=== PATIENT | male | born 1970 | race Caucasian/White ===

== ENCOUNTER 2018-01-28 09:46 | Day surgery (SDC) | payer OTHER ==
[~2018-01-28 09:46] MED LIST: Ak-Dilate OPHTHALMIC*** 0.71 ML, Cyclogyl 1% OPHTH SOL 5 ML 0.71 ML, GATIFLOXACIN 0.5% ... OP ONE; Lactated Ringers 1,000 ML IV ONE; Lactated Ringers 1,000 ML IV SCH; TETRACAINE 0.5% STERI-UNIT SOL OP ONE
[2018-01-28] MEDS ORDERED: DIPRIVAN 200 MG/20 ML IV ONE (09:47)
[2018-01-28] MEDS ORDERED: Epinephrine Preservative Free 1 MG/ML INTRAOP ONE (12:00)
[2018-01-28] MEDS ORDERED: BETADINE 5% OPHTHALMIC 30 ML OP ONE (12:00)
[2018-01-28] MEDS ORDERED: BSS 500 ML, Fortaz/Tazicef 1 GM** 0.2 G IO ONE ×2 (12:00)
[2018-01-28] MEDS ORDERED: LIDOCAINE HCL 1% AMPUL 5 ML IJ ONE (12:00)
[2018-01-28] MEDS ORDERED: ACETAZOLAMIDE 250 MG TABLET PO ONE (13:30)
[2018-01-28] MEDS ORDERED: Zofran 4 MG/2 ML VIAL IV PRN (13:30)
[2018-01-28 13:31] VITALS: O2SAT 98
[2018-01-28 13:51] VITALS: BP 122/79; PULSE 55
--- NOTE | 2018-01-29 08:37 | OP ---
DATE/TIME OF OPERATION: 01/28/2018 1207 TIME DICTATED: 1246 PREOPERATIVE DIAGNOSIS: Senile cataract of right eye. POSTOPERATIVE DIAGNOSIS: Senile cataract of right eye. SURGEON: Fracisco Cui MD PROFESSOR OF ART: NONE OPERATION: Cataract extraction of right eye with an intraocular lens implant STANDARD COMPLEX ___X___ ANESTHESIA: ___X___ Monitored anesthesia care in combination with topical and intra-cameral anesthesia (because of the established specific risk of reflux, arrhythmias, or an anxiety attack associated with ocular manipulation as well as difficulty of the air pollution inspector to manage such potentially catastrophic events while simultaneously attempting to complete the surgical procedure, it was deemed necessary for the patient's safety to have an anesthesiologist or a nurse residential life director present during the procedure whenever possible. The anesthesiologist or the nurse residential life director was utilized to monitor and regulate the intravenous sedation of the patient, so the patient was cooperative, relaxed, and comfortable). Topical anesthesia using Tetracaine eye drops together with intra cameral anesthesia using Lidocaine 1% MPF. The nurse was utilized to monitor the patient. ANESTHESIA PROVIDER: Milton Wasserman CRNA. COMPLICATIONS: None. BLOOD LOSS: None INDICATIONS: The patient is undergoing cataract surgery in the hopes of eliminating the visual complaints and difficulty. PROCEDURE: After arriving at the facility's outpatient surgery area, an IV was started; the patient was given 5 mg of p.o. Versed. (If an anesthesia provider was not monitoring the patient) The patient was then given topical anesthetic Tetracaine eye drops. A cotton pellet was soaked into a solution of a combination of Zymaxid 0.5%, Mike-Synephrine 2.5% and Ocufen (other drops might have been substituted referenced in the patient's record). The pellet was inserted by the RN into the lower conjunctival cul-de-sac with a sterile forceps and left for 20 minutes. The pellet was then removed by the RN with a sterile forceps before taking the patient to the operating room. The preoperative area nurse identified the patient and marked the correct eye to be operated on. I identified the correct eye to be operated on and marked it appropriately in the outpatient surgery area. The patient was then taken into the operating room. Tetracaine eye drops were installed again in the correct eye. The eyelids and the lashes and the lid margins were scrubbed with Betadine solution. One drop of the diluted Betadine solution was placed in the conjunctival cul-de-sac for 45 seconds and then was irrigated. A drop of Tetracaine Gel was placed in the conjunctival cul-de-sac. The patient's forehead was taped to secure it during the procedure. The patient was monitored. The patient was then draped in the usual way for this procedure. An eye speculum was used to separate the eyelids. The eye was then fixated and a temporal 2.5 mm incision was made in the clear cornea temporally at the limbus. Through the incision, 0.25 cc of 1% non-preserved lidocaine was injected into the anterior chamber for intracameral anesthesia. The anterior chamber was then filled with viscoelastic. The pupil was small. I felt that it would be safer to mechanically dilate the pupil. A Malyugin ring was used at this point which dilated the pupil. That was removed at the end of the procedure prior to aspiration of the viscoelastic from the anterior chamber and posterior to the intraocular lens implant. __X___ The cataract had a great amount of cortical changes. That rendered seeing the anterior capsule difficult for a safe performance of an anterior capsulotomy. I injected an air bubble into the anterior chamber. I then injected 1 ML of vision blue solution into the anterior chamber. The vision blue solution was irrigated from the anterior chamber after 30 seconds. The anterior capsule was stained which facilitated performing the anterior capsulotomy safely. After that was completed, a cystotome was introduced into the anterior chamber and a round anterior capsulotomy was performed. The capsule was removed by a forceps. Hydrodissection was next carried utilizing a 25-gauge cannula and balanced salt solution to delineate the cortical material from the capsule and the nucleus from the cortical material. The nucleus was rotated freely into the capsular bag with no difficulty. The phaco tip of the [employer] Phaco[employer]ulsifier was introduced into the anterior chamber and two grooves were made into the nucleus 90 degrees apart. Using two spatulas resulted into the nucleus being fractured into four quadrants. The phaco tip was then used to remove each quadrant of the nucleus. Viscoelastic was used during this process to protect the corneal endothelium. Once the entire nucleus was removed, the phaco tip then was removed and the irrigation tip was introduced into the eye and the cortex was removed. The posterior capsule was polished. It was noticed that there was a tear into the posterior capsule with few vitreous strands into the pupil plan. An anterior vitrectomy was performed. A 22.50 diopter, [id number], posterior chamber lens implant, was inspected and found to be grossly normal. The implant was inserted into the implant injector cartridge; Viscoelastic again was introduced into the anterior chamber, which filled the capsular bag. The implant injector's cartridge tip was placed at the limbal wound and the posterior chamber implant was released into the capsular bag and rotated appropriately. The implant was found to be into the capsular bag and it was centered. __X___ 0.2 ml of Tri-Moxi was introduced via 27 gauge cannula into the vitreous cavity through the ciliary processes. Viscoelastic was aspirated from the anterior chamber and posterior to the intraocular lens implant from the capsular bag using the irrigating tip. The anterior chamber was irrigated and filled with 5 cc antibiotic solution (500 cc of BSS plus 2 ml of Fortaz 100 mg/ml) ( if patient was not allergic to the medication). The lips of the corneal incision were hydrated using BSS solution. The anterior chamber was checked and found to be water tight. One drop each of antibiotic, steroid and NSAID drops (refer to chart for drops used) were placed in the conjunctival cul-de-sac of the operated eye. Patient tolerated the procedure quite well and left the operating room in satisfactory condition. DISCHARGE SUMMARY: The patient was released in stable condition. The patient and those with the patient were given an instruction sheet as of how to care for the eye after surgery as well as counseling on any abnormal laboratory studies by the postoperative RN. The patient was also given an appointment card for follow-up in the office and is to call immediately for any difficulties including but not limited to pain in the eye, decreased vision, discharge from the eye, headache and or fever. DISCHARGE DIAGNOSIS: Pseudophakia of right eye
== END 2018-01-28 14:25 | disposition home or self-care (01) ==
LOC: SDC 09:46
PROVIDERS: ATTEND Ophthalmology
DX: H25.9 Unspecified age-related cataract (principal); F32.9 Major depressive disorder, single episode, unspecified; J45.909 Unspecified asthma, uncomplicated; Z79.899 Other long term (current) drug therapy
CPT/HCPCS: 66982; C1780; J0171; J2704; A9270-GY

== ENCOUNTER 2018-02-12 10:16 | Emergency (ER) | payer OTHER ==
--- NOTE | 2018-02-12 10:34 | ERPHSYRPT ---
- History of Present Illness Time Seen by Provider: 02/12/18 10:27 Source: patient Exam Limitations: no limitations Patient Subjective Stated Complaint: states nonprod cough for one week. has tried otc meds without relief. states right side of chest hurts with coughing. Triage Nursing Assessment: occasional dry cough noted. skin pale, w/d. no resp distress noted. Physician History: The patient is a 47-year-old male complaining of a nonproductive cough, fever, and chills for the past week. He denies shortness of breath. His past medical history is significant for asthma and kidney stones. He is a smoker. Timing/Duration: week(s) (1), gradual onset, worse Cough Quality/Degree: moderate, dry cough Possible Cause: occasional episodes, smoke exposure Modifying Factors: Improves With: albuterol inhaler Associated Symptoms: fever, chills, chest pain/soreness, cough Allergies/Adverse Reactions: No Known Drug Allergies Allergy (Verified 02/12/18 10:23) Home Medications: Fluticasone/Salmeterol [Advair 250-50 Diskus] 1 each IH BID 11/16/15 [History] Tramadol HCl 50 mg [Ultram 50 mg] 50 mg PO TID 11/16/15 [History] Albuterol/Ipratropium 3ml Neb* [DUONEB 0.5-3 MG/3 ml Neb] 3 ml IH DAILY [History] Gabapentin [Neurontin] 100 mg PO TID 01/28/18 [History] Hx Tetanus, Diphtheria Vaccination/Date Given: No Hx Influenza Vaccination/Date Given: Yes Hx Pneumococcal Vaccination/Date Given: Yes - Review of Systems Constitutional: Fever, Chills Eyes: No Symptoms Ears, Nose, & Throat: No Symptoms Respiratory: Cough Cardiac: Chest Pain (right side with cough) Abdominal/Gastrointestinal: No Abdominal Pain, No Nausea, No Vomiting, No Diarrhea Genitourinary Symptoms: No Dysuria Musculoskeletal: No Back Pain, No Neck Pain Skin: No Rash Neurological: No Dizziness, No Focal Weakness, No Sensory Changes Psychological: No Symptoms Endocrine: No Symptoms Hematologic/Lymphatic: No Symptoms Immunological/Allergic: No Symptoms All Other Systems: Reviewed and Negative - Past Medical History Pertinent Past Medical History: Yes Neurological History: Seizures ENT History: Cataracts Cardiac History: No Pertinent History Respiratory History: Asthma, COPD Endocrine Medical History: No Pertinent History Musculoskeletal History: Other GI Medical History: No Pertinent History History: No Pertinent History Psycho-Social History: Anxiety, Depression Male Reproductive Disorders: No Pertinent History Other Medical History: sciatica pain lt leg - Past Surgical History Past Surgical History: Yes Neuro Surgical History: No Pertinent History Cardiac: No Pertinent History Respiratory: No Pertinent History Gastrointestinal: No Pertinent History Genitourinary: No Pertinent History Musculoskeletal: Joint Replacement, Orthopedic Surgery Male Surgical History: No Pertinent History Other Surgical History: states "both hips replaced" - Social History Smoking Status: Current every day smoker How long have you smoked: over 20 ye Exposure to second hand smoke: Yes Drug Use: none Patient Lives Alone: Yes - Nursing Vital Signs Nursing Vital Signs: Initial Vital Signs Temperature 97.3 F 02/12/18 10:18 Pulse Rate 74 02/12/18 10:18 Respiratory Rate 20 02/12/18 10:18 Blood Pressure 111/82 02/12/18 10:18 O2 Sat by Pulse Oximetry 98 02/12/18 10:18 Pain Scale Pain Intensity 7 - Physical Exam General Appearance: no apparent distress, alert Eye Exam: PERRL/EOMI, eyes nml inspection Ears, Nose, Throat Exam: normal ENT inspection, TMs normal, pharynx normal, moist mucous membranes Neck Exam: normal inspection, non-tender, supple, full range of motion Respiratory Exam: rhonchi, No respiratory distress, No diminished breath sounds , No prolonged expirations Cardiovascular Exam: regular rate/rhythm, normal heart sounds Gastrointestinal/Abdomen Exam: soft, No tenderness Rectal Exam: not done Back Exam: normal inspection, No CVA tenderness, No vertebral tenderness Extremity Exam: normal inspection, normal range of motion Neurologic Exam: alert, oriented x 3, cooperative, normal mood/affect, sensation nml, No motor deficits Skin Exam: normal color, warm, dry, No rash Lymphatic Exam: No adenopathy SpO2 Interpretation: normal SpO2: 98 Oxygen Delivery: Room Air - Radiology Exams Chest X-ray Interpretation: Interpreted by me, Negative (comp 2v cxr 01/16/16.) Ordered Tests: Active Orders 24 hr Category Date Time Status CHEST 2 VIEWS (PA AND LAT) Stat Exams 02/12/18 10:35 Taken Medication Summary Discontinued Medications Generic Name Dose Route Start Last Admin Trade Name Freq PRN Reason Stop Dose Admin Ceftriaxone Sodium 1,000 mg 02/12/18 12:06 Rocephin 1000 Mg Inj IM 02/12/18 12:07 STAT ONE - Progress Progress: unchanged Air Movement: good Blood Culture(s) Obtained: No Antibiotics given: Yes Counseled pt/family regarding: diagnosis, rad results - Departure Time of Disposition: 12:06 Departure Disposition: Home Clinical Impression: Bronchitis Condition: Stable Critical Care Time: No Referrals: JOHNNY FIELDS MD [Primary Care Provider] - Additional Instructions: You have bronchitis. You were given Rocephin 1 g by IM in the ER. Take Augmentin 875 to times a day for 10 days. Take Phenergan With Codeine cough syrup 5 mL every 4-6 hours as needed for cough. Follow-up with your primary medical doctor in 2-3 days if needed. Prescriptions: Amoxicillin/Potassium Clav [Augmentin 875-125 Tablet] 875 mg PO BID #20 tablet
[2018-02-12] MEDS ORDERED: Rocephin 1000 MG INJ ONE (12:25)
[2018-02-12] MEDS ORDERED: XYLOCAINE 1% HCL 20 ML MDV ONE (12:25)
[2018-02-12] MEDS: Rocephin 1000 MG INJ IM ONE (12:31)
[2018-02-12 12:36] VITALS: BP 117/75; PULSE 16; O2SAT 99
--- NOTE | 2018-02-12 13:13 | XRAY ---
Indication: Cough, difficulty breathing, and right-sided chest pain. Comparison: January 16, 2016. PA/lateral chest again hyperinflated with minimal lingular fibrosis/scarring. Remaining heart and lungs normal. Bony thorax intact with stable minimal T3-T7 concave deformities. Impression: Nonacute chest with chronic features.
== END 2018-02-12 12:48 | disposition home or self-care (01) ==
LOC: ED 10:16
DX: J40 Bronchitis, not specified as acute or chronic (principal); Z72.0 Tobacco use; G40.909 Epilepsy, unspecified, not intractable, without status epilepticus; J45.909 Unspecified asthma, uncomplicated; J44.9 Chronic obstructive pulmonary disease, unspecified; F41.8 Other specified anxiety disorders; Z87.442 Personal history of urinary calculi
CPT/HCPCS: 71046; 96372; 99284; J0696

== ENCOUNTER 2018-10-23 11:24 | Emergency (ER) | payer OTHER ==
[2018-10-23] MEDS ORDERED: Sodium Chloride 0.9% 1000 ML 1,000 ML IV STA (12:13)
[2018-10-23] MEDS ORDERED: DUONEB 0.5-3 MG/3 ml Neb IH ONE ×2 (12:13→12:26)
[2018-10-23] MEDS ORDERED: solu-MEDROL 125 MG IV ONE (12:13)
--- NOTE | 2018-10-23 12:13 | XRAY ---
Indication: Fever and cough. Flu symptoms. Comparison: February 12, 2018. PA/lateral chest remains hyperinflated with minimal lingular fibrosis/scarring. Remaining lungs clear. Heart and mediastinal structures within normal limits. Bony thorax intact again with minimal T3-T7 concave deformities. Impression: Stable nonacute hyperinflated chest with chronic features.
--- NOTE | 2018-10-23 12:18 | ERPHSYRPT ---
- History of Present Illness Time Seen by Provider: 10/23/18 12:08 Source: patient Exam Limitations: no limitations Patient Subjective Stated Complaint: PT HERE FOR COUGH NONPRODUCTIVE, CHILLS, LOW GRADE FEVER OFF AND ON, ACHES FROM COUGHING, Triage Nursing Assessment: PT ALERT, RESP EASY, HAS CONGESTED SOUNDING COUGH, CHEST CLEAR, NO EDEMA Physician History: 48-year-old white male with history of seizures, cataracts, asthma, COPD, anxiety, depression, sciatica, Patient arrives with complaint of cough congestion states he feels like he is wheezing generalized aches chills symptoms going on for a week. Past medical history seizures, cataracts, asthma, COPD, anxiety, depression, sciatica Past surgical history includes cataracts, bilateral hip replacement Timing/Duration: week(s) (1 week) Severity: moderate Modifying Factors: Improves With: nothing Associated Symptoms: shortness of breath, cough, chills, malaise, No nausea, No vomiting, No abdominal pain, No heartburn, No diaphoresis, No chest pain, No fever, No headaches, No loss of appetite, No rash, No syncope, No seizure, No weakness Allergies/Adverse Reactions: No Known Drug Allergies Allergy (Verified 10/23/18 11:36) Home Medications: Albuterol/Ipratropium 3ml Neb* [DUONEB 0.5-3 MG/3 ml Neb] 3 ml IH DAILY [History] Gabapentin [Neurontin] 100 mg PO TID 01/28/18 [History] Fluticasone/Salmeterol 500/50* [Advair 500-50 Diskus] 1 ea DAILY 10/23/18 [ History] Ketorolac Tromethamine 1 drop DAILY 10/23/18 [History] Prednisolone Acetate OPHTH [Pred-Forte 1% Ophthalmic] 1 drop DAILY [History] Hx Tetanus, Diphtheria Vaccination/Date Given: No Hx Influenza Vaccination/Date Given: Yes Hx Pneumococcal Vaccination/Date Given: Yes Immunizations Up to Date: Yes - Review of Systems Constitutional: Chills, No Fever Eyes: No Symptoms Ears, Nose, & Throat: Nose Congestion, No Ear Pain, No Ear Discharge, No Hearing Changes, No Tinnitus, No Nose Pain, No Epistaxis, No Mouth Pain, No Mouth Swelling, No Loose Teeth, No Throat Pain, No Throat Swelling, No Hoarse, No Painful Swallowing, No Stridor Respiratory: Cough, Dyspnea, Wheezing Cardiac: No Chest Pain, No Edema, No Syncope Abdominal/Gastrointestinal: No Abdominal Pain, No Nausea, No Vomiting, No Diarrhea Genitourinary Symptoms: No Dysuria Musculoskeletal: Myalgias, No Arthralgias, No Back Pain, No Neck Pain, No Deformity, No Fall, No Injury, No Joint Redness, No Joint Pain, No Joint Swelling Skin: No Rash Neurological: No Dizziness, No Focal Weakness, No Sensory Changes Psychological: No Symptoms Endocrine: No Symptoms All Other Systems: Reviewed and Negative - Past Medical History Pertinent Past Medical History: Yes Neurological History: Seizures ENT History: Cataracts Cardiac History: No Pertinent History Respiratory History: Asthma, COPD, Pneumonia Endocrine Medical History: No Pertinent History Musculoskeletal History: Other GI Medical History: No Pertinent History History: No Pertinent History Psycho-Social History: Anxiety, Depression Male Reproductive Disorders: No Pertinent History Other Medical History: sciatica pain lt leg - Past Surgical History Past Surgical History: Yes Neuro Surgical History: No Pertinent History Cardiac: No Pertinent History Respiratory: No Pertinent History Gastrointestinal: No Pertinent History Genitourinary: No Pertinent History Musculoskeletal: Joint Replacement, Orthopedic Surgery Male Surgical History: No Pertinent History Other Surgical History: states "both hips replaced" - Social History Smoking Status: Current every day smoker How long have you smoked: 1/2 Exposure to second hand smoke: Yes Drug Use: none Patient Lives Alone: No - Nursing Vital Signs Nursing Vital Signs: Initial Vital Signs Temperature 98.0 F 10/23/18 11:28 Pulse Rate 73 10/23/18 11:28 Respiratory Rate 18 10/23/18 11:28 Blood Pressure 119/75 10/23/18 11:28 O2 Sat by Pulse Oximetry 100 10/23/18 11:28 Pain Scale Pain Intensity 2 - Physical Exam General Appearance: no apparent distress, alert Eye Exam: PERRL/EOMI, eyes nml inspection Ears, Nose, Throat Exam: normal ENT inspection, TMs normal, pharynx normal, moist mucous membranes Neck Exam: normal inspection, non-tender, supple, full range of motion Respiratory Exam: airway intact, diminished breath sounds, wheezing (few wheezes ) Cardiovascular Exam: regular rate/rhythm, normal heart sounds, normal peripheral pulses Gastrointestinal/Abdomen Exam: soft, normal bowel sounds, No tenderness, No mass Back Exam: normal inspection, normal range of motion, No CVA tenderness, No vertebral tenderness Extremity Exam: normal inspection, normal range of motion, pelvis stable Neurologic Exam: alert, oriented x 3, cooperative, 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, normal mood/affect, nml cerebellar function, nml station & gait, sensation nml, No motor deficits Skin Exam: normal color, warm, dry, No rash Lymphatic Exam: No adenopathy SpO2 Interpretation: normal (100he%) SpO2: 100 - Course Nursing assessment & vital signs reviewed: Yes EKG Interpreted by Me: RATE (65 bpm), Sinus Rhythm, Other (EKG: Sinus rhythm, 65 bpm,indeterminate axis, no acute ST or T wave changes noted.) - Radiology Exams Chest X-ray Interpretation: Discussed w/ radiologist (chest x-ray: Impression stable nonacute hyperinflated chest with chronic features) Ordered Tests: Active Orders 24 hr Category Date Time Status EKG-ER Only STAT Care 10/23/18 12:13 Active IV Insertion STAT Care 10/23/18 12:13 Active CHEST 2 VIEWS (PA AND LAT) Stat Exams 10/23/18 12:03 Completed CBC W DIFF Stat Lab 10/23/18 12:30 Completed CMP Stat Lab 10/23/18 12:30 Completed VENOUS BLOOD GAS Stat Lab 10/23/18 12:46 Completed Peak Expiratory Flow Rate ONCE RT 10/23/18 12:25 Active Respiratory Nebulizer STAT RT 10/23/18 12:14 Active Respiratory Therapy Assessment DAILY RT 10/23/18 12:24 Active Medication Summary Discontinued Medications Generic Name Dose Route Start Last Admin Trade Name Dimple PRN Reason Stop Dose Admin Albuterol/Ipratropium 3 ml 10/23/18 12:13 10/23/18 12:28 Duoneb 0.5-3 Mg/3 Ml Neb IH 10/23/18 12:14 3 ml STAT ONE Administration Albuterol/Ipratropium Confirm 10/23/18 12:26 Duoneb 0.5-3 Mg/3 Ml Neb Administered 10/23/18 12:27 Dose 3 ml IH .STK-MED ONE Azithromycin 500 mg 10/23/18 13:25 10/23/18 13:30 Zithromax 250 Mg Tablet PO 10/23/18 13:26 500 mg STAT ONE Administration Azithromycin Confirm 10/23/18 13:29 Zithromax 250 Mg Tablet Administered 10/23/18 13:30 Dose 500 mg .ROUTE .STK-MED ONE Sodium Chloride 1,000 mls @ 999 mls/hr 10/23/18 12:13 10/23/18 13:31 Sodium Chloride 0.9% 1000 Ml IV 10/23/18 13:13 Infused .Q1H1M STA Infusion Sodium Chloride Confirm 10/23/18 12:20 Sodium Chloride 0.9% 1000 Ml Administered 10/23/18 12:21 Dose 1,000 mls @ ud .ROUTE .STK-MED ONE Methylprednisolone Sodium Succinate 125 mg 10/23/18 12:13 10/23/18 12:22 Solu-Medrol 125 Mg IV 10/23/18 12:14 125 mg STAT ONE Administration Methylprednisolone Sodium Succinate Confirm 10/23/18 12:20 Solu-Medrol 125 Mg Administered 10/23/18 12:21 Dose 125 mg .ROUTE .STK-MED ONE Lab/Rad Data: Laboratory Result Diagrams 10/23/18 12:30 10/23/18 12:30 Laboratory Results 10/23/18 10/23/18 10/23/18 Range/Units 12:46 12:30 12:30 WBC 6.9 (4.0-10.5) K/mm3 RBC 4.52 (4.1-5.6) M/mm3 Hgb 14.7 (12.5-18.0) gm/dl Hct 44.0 (42-50) % MCV 97.3 (78-100) fl MCH 32.5 H (26-32) pg MCHC 33.4 (32-36) g/dl RDW 14.0 (11.5-14.0) % Plt Count 312 (150-450) K/mm3 MPV 9.3 (6-9.5) fl Gran % 66.0 (36.0-66.0) % Eos # (Auto) 0.27 (0-0.5) Absolute Lymphs (auto) 1.33 (1.0-4.6) Absolute Monos (auto) 0.68 (0.0-1.3) Lymphocytes % 19.3 L (24.0-44.0) % Monocytes % 9.9 (0.0-12.0) % Eosinophils % 3.9 (0.00-5.0) % Basophils % 0.9 (0.0-0.4) % Absolute Granulocytes 4.54 (1.4-6.9) Basophils # 0.06 (0-0.4) pO2/FiO2 Ratio 21.0 % VBG pH 7.47 H (7.32-7.42) VBG pCO2 at Pat Temp 34 L (42-55) mm/Hg VBG pO2 at Pat Temp 23 L (25-40) mm/Hg VBG HCO3 24.7 (22-28) meq/L VBG O2 Sat (Darrick) 50.5 L (95-100) VBG Base Excess 1.6 (-2.0-2.0) VBG Hemoglobin 15.7 VBG Carboxyhemoglobin 2.6 (0.0-6.9) % T HGB POC Potassium 4.0 (3.5-5.1) Sodium 140 (137-145) mmol/L Potassium 4.1 (3.5-5.1) mmol/L Chloride 102 (98-107) mmol/L Carbon Dioxide 24 (22-30) mmol/L Anion Gap 17.0 H (5-15) MEQ/L BUN 12 (9-20) mg/dL Creatinine 0.74 (0.66-1.25) mg/dL Estimated GFR > 60.0 ML/MIN Glucose 81 (74-106) mg/dL Calcium 9.6 (8.4-10.2) mg/dL Total Bilirubin 0.60 (0.2-1.3) mg/dL AST 31 (17-59) U/L ALT 18 (0-50) U/L Alkaline Phosphatase 75 (38-126) U/L Serum Total Protein 7.5 (6.3-8.2) g/dL Albumin 4.5 (3.5-5.0) g/dL Influenza Type A Ag (NEGATIVE) Influenza Type B Ag (NEGATIVE) RSV (PCR) (Negative) 10/23/18 Range/Units 12:02 WBC (4.0-10.5) K/mm3 RBC (4.1-5.6) M/mm3 Hgb (12.5-18.0) gm/dl Hct (42-50) % MCV (78-100) fl MCH (26-32) pg MCHC (32-36) g/dl RDW (11.5-14.0) % Plt Count (150-450) K/mm3 MPV (6-9.5) fl Gran % (36.0-66.0) % Eos # (Auto) (0-0.5) Absolute Lymphs (auto) (1.0-4.6) Absolute Monos (auto) (0.0-1.3) Lymphocytes % (24.0-44.0) % Monocytes % (0.0-12.0) % Eosinophils % (0.00-5.0) % Basophils % (0.0-0.4) % Absolute Granulocytes (1.4-6.9) Basophils # (0-0.4) pO2/FiO2 Ratio % VBG pH (7.32-7.42) VBG pCO2 at Pat Temp (42-55) mm/Hg VBG pO2 at Pat Temp (25-40) mm/Hg VBG HCO3 (22-28) meq/L VBG O2 Sat (Darrick) (95-100) VBG Base Excess (-2.0-2.0) VBG Hemoglobin VBG Carboxyhemoglobin (0.0-6.9) % T HGB POC Potassium (3.5-5.1) Sodium (137-145) mmol/L Potassium (3.5-5.1) mmol/L Chloride (98-107) mmol/L Carbon Dioxide (22-30) mmol/L Anion Gap (5-15) MEQ/L BUN (9-20) mg/dL Creatinine (0.66-1.25) mg/dL Estimated GFR ML/MIN Glucose (74-106) mg/dL Calcium (8.4-10.2) mg/dL Total Bilirubin (0.2-1.3) mg/dL AST (17-59) U/L ALT (0-50) U/L Alkaline Phosphatase (38-126) U/L Serum Total Protein (6.3-8.2) g/dL Albumin (3.5-5.0) g/dL Influenza Type A Ag NEGATIVE (NEGATIVE) Influenza Type B Ag NEGATIVE (NEGATIVE) RSV (PCR) NEGATIVE (Negative) - Progress Progress: improved Progress Note: 10/23/18 13:21 Patient feeling better after IV normal saline, Solu-Medrol, and DuoNeb treatment. Patient's labs essentially normal Influenza and strep are negative. EKG sinus rhythm 65 bpm indeterminate axis no acute ST or T wave changes. Chest x-ray stable nonacute hyperinflated chest with chronic features.. Will discharge patient with tapering dose of prednisone and Zithromax. Patient to continue using his DuoNeb inhaler. Patient instructed to stop smoking. - Departure Time of Disposition: 13:23 Departure Disposition: Home Clinical Impression: Shortness of breath, COPD with exacerbation Condition: Fair Critical Care Time: No Referrals: JOHNNY FIELDS MD [Primary Care Provider] - Instructions: Chronic Obstructive Pulmonary Disease Additional Instructions: Return home. Plenty of fluids. Zithromax as directed. Tapering dose of prednisone as directed. Use your DuoNeb treatment as directed by your family doctor. Stop smoking. Return for acute distress or for severe symptoms. Tylenol every 4 hours as needed for pain or temperature greater than 100.5. Prescriptions: Azithromycin 250 mg [Zithromax 250 MG TABLET] 250 mg PO DAILY #4 tablet
[2018-10-23] MEDS ORDERED: Sodium Chloride 0.9% 1000 ML 1,000 ML ONE (12:20)
[2018-10-23] MEDS ORDERED: solu-MEDROL 125 MG ONE (12:20)
[2018-10-23 12:27] LABS: INFLUENZA A NEGATIVE (NEGATIVE); INFLUENZA B NEGATIVE (NEGATIVE); RESPIRATORY SYNCTIAL VIRUS NEGATIVE (Negative)
[2018-10-23 12:38] LABS: BASOPHIL % 0.9 % (0.0-0.4); Basophil (Absolute #) 0.06 (0-0.4); Eosinophil % 3.9 % (0.00-5.0); Eosinophil (Absolute #) 0.27 (0-0.5); Granulocyte Absolute (ANC) 4.54 (1.4-6.9); Hemoglobin 14.7 gm/dl (12.5-18.0); Lymphocyte (Absolute #) 1.33 (1.0-4.6); Lymphocytes % 19.3 % (24.0-44.0); Mean Cell Volume 97.3 fl (78-100); Mean Corpuscular Hemoglobin 32.5 pg (26-32); Mean Corpuscular Hgb Concent. 33.4 g/dl (32-36); Mean Platelet Volume 9.3 fl (6-9.5); Monocyte (Absolute #) 0.68 (0.0-1.3); Monocytes % 9.9 % (0.0-12.0); Platelet Count 312 K/mm3 (150-450); Red Blood Count 4.52 M/mm3 (4.1-5.6); White Blood Count 6.9 K/mm3 (4.0-10.5)
[2018-10-23 12:47] LABS: ALBUMIN 4.5 g/dL (3.5-5.0); ALKALINE PHOSPHATASE 75 U/L (38-126); BLOOD UREA NITROGEN 12 mg/dL (9-20); CHLORIDE 102 mmol/L (98-107); Calcium 9.6 mg/dL (8.4-10.2); Carbon Dioxide 24 mmol/L (22-30); Creatinine 1 0.74 mg/dL (0.66-1.25); Glucose 81 mg/dL (74-106); Potassium 4.1 mmol/L (3.5-5.1); SGOT/AST 31 U/L (17-59); SGPT/ALT 18 U/L (0-50); SODIUM 140 mmol/L (137-145); Total Protein 7.5 g/dL (6.3-8.2)
[2018-10-23 12:49] LABS: VBG BASE EXCESS 1.6 (-2.0-2.0); VBG CARBOXYHEMOGLOBIN 2.6 % T HGB (0.0-6.9); VBG HCO3- 24.7 meq/L (22-28); VBG HEMOGLOBIN 15.7; VBG O2 SATURATION 50.5 (95-100); VBG pH 7.47 (7.32-7.42)
[2018-10-23] MEDS ORDERED: Zithromax 250 MG TABLET PO ONE (13:25)
[2018-10-23] MEDS ORDERED: Zithromax 250 MG TABLET ONE (13:29)
[2018-10-23 14:20] VITALS: BP 112/63; PULSE 78
[2018-10-23 14:33] VITALS: O2SAT 100
== END 2018-10-23 14:21 | disposition home or self-care (01) ==
LOC: ED 11:24
DX: R06.02 Shortness of breath (principal); J44.1 Chronic obstructive pulmonary disease with (acute) exacerbation; M54.32 Sciatica, left side; Z79.899 Other long term (current) drug therapy
CPT/HCPCS: 36000; 36415; 71046; 80053; 82805; 85025; 87631; 93005; 94150; 94640; 96360; 96374; 99284; J2930; A9270-GY